=== PATIENT | female | born 1975 | race Caucasian/White ===

== ENCOUNTER 2016-06-06 15:52 | Emergency (ER) | payer MEDICAID, OTHER ==
[2016-06-06] MEDS ORDERED: diphenhydrAMINE HCL 50 MG/ML VIAL ONE (16:00)
[2016-06-06] MEDS: diphenhydrAMINE HCL 50 MG/ML VIAL IV ONE (16:03)
--- OUTSIDE RECORDS SUMMARY | 2016-06-06 16:31 | XMS REPORT | Continuity of Care Document ---
:1975 Author Organization [facility] [place] [address] Care Team Providers Name Role Phone Unavailable Primary Care Provider Unavailable Source Comments This disclosure is being made pursuant to the [employer] program and maynot contain all information available regarding this patient.[facility] Active Allergies and Adverse Reactions Not on File Current Medications Be aware that medications may not be up to date as of this document. Alwaysverify current medications with the patient. Not on file Active Problems Not on file Immunizations Name Dates Previously Given Next Due Influenza Split 01/01/2010,03/07/2009 Pneumococcal Polysaccharide-23 12/06/2008 Social History Tobacco Use Types Packs/Day Years Used Date Current Every Day Smoker Last Filed Vital Signs Vital Sign Reading Time Taken Blood Pressure 128/83 04/09/2010 3:33 PM [employer] Pulse 104 04/09/2010 3:33 PM [employer] Temperature - - Respiratory Rate - - Height 1.689 m (5' 6.5") 04/09/2010 3:31 PM [employer] Weight 85.73 kg (189 lb) 04/09/2010 3:31 PM [employer] Body Mass Index 30.05 04/09/2010 3:31 PM [employer] Oxygen Saturation - - Plan of Care Health Maintenance Due Date Last Done Comments Lab-Lipids 1975 LAB-HgA1C 1981 Eye (Ophthalmology) Exam 1986 Foot Exam 1986 Tetanus/Pertussis (1 - Tdap) 12/12/1995 Pap Smear 1997 Influenza Immunization (#1) 2015 01/01/2010, 03/07/2009 Results from Last 3 Months Not on file
--- NOTE | 2016-06-06 16:36 | ERNOTE ---
Allergy Symptoms - ER Time Seen by Provider: 06/06/16 15:55 Source: patient Exam Limitations: no limitations Immunizations: IMMUNIZATION HX Immunizations Up to Date Yes History of Influenza Vaccine Yes Hx Pneumococcal Vaccination Yes Allergies/Adverse Reactions: Allergies amoxicillin [From Augmentin] Allergy (Verified 06/06/16 16:01) Itching clavulanic acid [From Augmentin] Allergy (Verified 06/06/16 16:01) Itching duloxetine HCl [From Cymbalta] Allergy (Verified 06/06/16 16:01) Home Medications: HOME MEDICATIONS Amlodipine Besylate 5 mg PO DAILY 12/03/15 [Last Taken Unknown] Levothyroxine Sodium [Tirosint] 50 mcg PO DAILY 12/03/15 [Last Taken Unknown] Sertraline HCl [Zoloft] 100 mg PO DAILY 12/03/15 [Last Taken Unknown] metFORMIN HCL [Glucophage] 1,000 mg PO BID 12/03/15 [Last Taken Unknown] traZODone HCL [Desyrel] 100 mg PO HS 12/03/15 [Last Taken Unknown] - History of Present Illness Narrative: Patient states that she was started on levaquin for pneumonia five days ago. ( she was seen by her doctor for fatigue and send to the ER, where she has test done and was diagnosed, denies any fever, cough, or shortness of breath at that time) The levaquin caused her to hurt all over so she stopped it after two days , saw her doctor today and was started on augmentin. She took the first dose at 15:30 and 10 minutes later started to feel hot, itching all over, short of breath and came here right away, nausea, no vomiting Date (Duration): 06/06/16 Time (Timing): 15:40 Review of Systems - Review of Systems Constitutional: Present: recent illness. Absent: fever ENT: Present: See HPI, throat swelling Respiratory: Present: See HPI, shortness of breath. Absent: cough Cardiology: Absent: chest pain Gastrointestinal/Abdominal: Present: See HPI, nausea Genitourinary: Present: no symptoms reported Skin: Present: See HPI, other - itching - Patient's Past Medical History Patient History - Medical: Anxiety, Diabetes Type 2, Depression, Hypothyroidism Patient History - Cardiac/Respiratory: Hypertension, Pneumonia Patient History - Cancer: No Hx of Cancer Patient History - Surgical Procedures: Appendectomy, Patient History - Other: None LMP (females 10-50): now - Social History Living Situations: home Abuse History: No History of abuse Psych History: Hx of Anxiety Smoking Status: Current every day smoker Have you smoked in the past 12 months: Yes Alcohol Use: none Drug Use: none - Immunizations Immunizations Up to Date: Yes Hx Pneumococcal Vaccination: Yes History of Influenza Vaccine: Yes Physical Exam - Physical Exam General Appearance: Present: wd/wn, alert, mild distress, anxious Eye Exam: Normal inspection: bilateral Ears, Nose, Throat: Present: normal pharynx Neck: Present: normal inspection, other - no stridor Respiratory: Present: no respiratory distress, normal breath sounds, no accessory muscle use, lungs clear. Absent: wheezing Cardiovascular/Chest: Present: no murmur, tachycardia Gastrointestinal/Abdominal: Present: normal bowel sounds, nontender, nondistended, soft Neurological Exam: Present: alert, oriented, normal mood/affect Skin Exam: Present: normal color, warm/dry. Absent: skin rash - ED Progress - Results and Orders Patient's Lab Results:: I have reviewed the patient's lab results. - Vital Signs Patient's Vital Signs:: I have reviewed the patient's vital signs. Vital Signs: Vital Signs 06/06/16 15:55 Temperature 36.9 C Pulse Rate 115 H Respiratory 20 Rate Blood Pressure 110/65 O2 Sat by Pulse 97 Oximetry - X-Ray X-Ray #1 X-Ray: chest - no acute findings Interpretation: Reviewed by me - Progress/Reassessment Chief Complaint: Allergic Reaction Progress Note-Subjective: 06/06/16 16:39 patient calmer, states that the itching is better after benadryl 50mg IV, no rash, lung clear to auscultation 06/06/16 17:06 reviewed chart from [facility] ER and clinic, patient seen in clinic to get established with new doctor, send to ER to r/o DKA, CXR showed subtle infiltrate , started on levaquin, no fever, nl O2 sats patient sleeping easily aroused, feels much better now, discussed plan to repeat CXR and labs, if no signs of pneumonia not new antibiotic is indicated patient has been on clonazepam for years, when she moved up to [place] and started at [facility] they would not refill clonazepam so she is switching to family medicine and has been out of her meds for a month 06/06/16 17:50 discussed results with patient and fiance, as ketones positive patient is in DKA though venous pH normal and glucose 245, offered admission. Patient does not want to be admitted but go home for now, has insulin and glucometer at home. She states that over the last year her sugar has not been controlled well due to stress, her mother ten months ago and there were two more family recently. She has follow up tomorrow with neurology to get back on her fibromyalgia medication that her doctor at [facility] did not feel comfortable refilling. 06/06/16 18:26 patient calm, feeling back to normal, drank 32oz of liquids and still wants to go home, signed AMA Departure Clinical Impression: Anxiety Diabetes type 2, uncontrolled Qualifiers: Diabetes mellitus complication status: with unspecified complications Diabetes mellitus senior living insulin use: unspecified buttermaker continuous churn insulin use status Qualified Code(s): E11.8 - Type 2 diabetes mellitus with unspecified complications DKA (diabetic ketoacidoses) Qualifiers: Diabetes mellitus type: type 2 Diabetes mellitus complication detail: without coma Qualified Code(s): E13.10 - Other specified diabetes mellitus with ketoacidosis without coma Adverse reaction to antibiotic Qualifiers: Encounter type: initial encounter Qualified Code(s): T36.95XA - Adverse effect of unspecified systemic antibiotic, initial encounter - Departure Disposition: Home self-care Condition: Fair Instructions: Diabetic Ketoacidosis Additional Instructions: -drink plenty of water and use your insulin per sliding scale -if you change your mind at any time about being admitted return to our ER or go to [facility] -as the Xray and exam don't show any sign of pneumonia at this point and you have reacted to two different antibiotics you will not be given another antibiotic -take benadryl if you have any further allergic symptoms (or for anxiety) Referrals: Mattie Weston ARNP [Primary Care Provider] -
[2016-06-06 17:15] LABS: Hemoglobin 11.5 gm/dL (12.5-16.0); Mean Cell Volume 75.5 fl (78-100); Mean Corpuscular Hemoglobin 24.1 pg (27-31); Mean Corpuscular Hgb Conc 31.9 g/dl (32-36); Mean Platelet Volume 9.4 fl (6.0-9.5); Neutrophil # 10.5 K/mm3 (1.3-6.0); Neutrophil % 81.5 % (42-75.0); Platelet Count 318 K/mm3 (150-450); Red Blood Count 4.77 M/mm3 (4.2-5.4); Red Cell Distribution Width 15.6 % (11.5-14.0); White Blood Count 12.9 K/mm3 (4.0-10.5)
[2016-06-06] MEDS: NORMAL SALINE 1,000 ML IV ONE (17:19)
[2016-06-06 17:26] LABS: ALT 19 U/L (19-67); AST 12 U/L (0-48); Albumin * 3.4 gm/dl (3.4-5.0); Alkaline Phosphatase * 67 U/L (50-170); Anion Gap 16.4 mmol/L (6.8-13.8); Bilirubin, Total 0.3 mg/dL (0.0-1.1); Blood Urea Nitrogen 8 mg/dL (3-23); Ca. Corrected For Albumin 8.5 mg/dL (8.4-10.2); Calcium * 8.3 mg/dL (7.9-10.9); Carbon Dioxide 24.2 mmol/L (24-32.6); Chloride 99 mmol/L (97-106); Glucose * 245 mg/dL (70-110); Potassium 3.6 mmol/L (3.4-4.6); Sodium 136 mmol/L (132-142); Total Protein 7.4 gm/dL (6.2-8.2)
[2016-06-06 18:33] VITALS: BP 120/78
== END 2016-06-06 18:32 | disposition home or self-care (01) ==
LOC: ER 15:52
DX: E13.10 Other specified diabetes mellitus with ketoacidosis without coma (principal); F41.9 Anxiety disorder, unspecified; T36.95XA Adverse effect of unspecified systemic antibiotic, initial encounter; F17.210 Nicotine dependence, cigarettes, uncomplicated